=== PATIENT | male | born 1960 | race Caucasian/White ===

== ENCOUNTER 2019-12-26 20:09 | Emergency (ER) | payer OTHER, SELFPAY ==
[2019-12-26 20:39] VITALS: BP 150/70; PULSE 61; RESP 16; TEMP 36.9; O2SAT 94; BMI 28.5
--- NOTE | 2019-12-26 21:25 | ED.EXTPRO ---
HPI - Extremity Problem General Chief complaint: Extremity Problem,Nontraumatic Stated complaint: swollen right hand, hurt at work Time Seen by Provider: 12/26/19 20:55 Source: patient Mode of arrival: Ambulatory Limitations: no limitations History of Present Illness HPI Narrative: 59-year-old male nonsmoker with noncontributory medical history presents with a chief complaint of a reaccumulation of his right olecranon bursitis and now some swelling noted in his right hand. He denies any pain in his hand nor redness, warmth or red streaks. He has no systemic findings such as fever, chills nor nausea or vomiting. He was seen and evaluated at an outside facility and had a bursitis drained about a week ago and states that it developed a large hematoma which then was resort been to his forearm and now seems to have settled in his hand. He denies any new injury. He states that he went back to work and it seems to have exacerbated his symptoms rapidly. MD Complaint: extremity swelling Onset (ago): hour(s) Pain Consistency: intermittent Location: right and upper extremity Quality: aching Radiation: none Relieving factors: nothing Exacerbating factors: range of motion and palpation Associated symptoms: denies other symptoms Related Data Home Medications Medication Instructions Recorded Confirmed . (No Home Medications) #0 08/11/10 Allergies Allergy/AdvReac Type Severity Reaction Status Date / Time No Known Drug Allergies Allergy Verified 12/26/19 20:44 Review of Systems Constitutional Constitutional: Denies chills, Denies fatigue, Denies fever(s), Denies frequent falls, Denies lethargy and Denies weakness Eyes Eyes: Denies change in vision, Denies eye discharge, Denies irritation and Denies loss of vision ENT Ears, Nose, Mouth, and Throat: Denies change in voice, Denies dizziness, Denies neck pain, Denies sore throat and Denies throat swelling Cardiovascular Cardiovascular: Denies chest pain, Denies irregular heart rhythm, Denies lightheadedness, Denies palpitations, Denies dyspnea, Denies dyspnea on exertion and Denies orthopnea Respiratory Respiratory: Denies cough, Denies dyspnea, Denies dyspnea on exertion and Denies wheezing Gastrointestinal Gastrointestinal: Denies abdominal pain, Denies change in bowel habits, Denies diarrhea, Denies nausea and Denies vomiting Genitourinary Genitourinary: Denies hematuria, Denies flank pain, Denies urinary incontinence and Denies urinary urgency Musculoskeletal Musculoskeletal: Denies back pain, Reports joint swelling, Denies muscle weakness, Denies neck pain, Denies numbness and Denies tingling Integumentary/Breasts Skin/Breast: Denies pruritus, Denies erythema, Denies rash and Denies wounds Neurologic Neurologic: Denies behavioral changes, Denies confusion, Denies dizziness, Denies frequent falls, Denies loss of vision, Denies numbness, Denies tingling and Denies weakness Psychiatric Psychiatric: Denies anxiety, Denies behavioral changes, Denies confusion, Denies depression, Denies homicidal ideation and Denies suicidal ideation Endocrine Endocrine: Denies fatigue, Denies flushing and Denies palpitations Hematologic/Lymphatic Hematologic/Lymphatic: Denies easy bruising Allergic/Immunologic Allergic/Immunologic: Denies urticaria, Denies throat swelling and Denies wheezing Patient History Social History Smoking Status: Never smoker Smoking Status: Never smoker alcohol intake frequency: 0-2 drinks per day Substance Use Type: does not use Exam Narrative Exam Narrative: GEN: AOx3 and in mild distress EYES: Pupils are equal, round, and reactive to light and accommodation. Extraoccular muscles are intact bilaterally. There is no subconjunctival hemorrhage or exudate. CHEST: Lungs are clear to auscultation bilaterally and free of wheezes, rales, or rhonchi. Heart rate is regular rhythm, there are no murmurs, clicks, rubs, or gallops. There is no chest wall tenderness. ABD: Abdomen is soft and nontender. There is no guarding or rebound. Bowel sounds are normal in all 4 quadrants. There is no mass or organomegaly. EXT: Full but slightly painful range of motion right elbow, he states the pain is all in his slightly edematous bursa. There is no fluctuance, erythema or warmth. Additionally, there is some edema of his right hand but no warmth or redness. SKIN: Warm, pink, and dry. No erythema or rash Initial Vital Signs Initial Vital Signs: Vital Signs Temperature 98.5 F 12/26/19 20:39 Pulse Rate 61 12/26/19 20:39 Respiratory Rate 16 12/26/19 20:39 Blood Pressure 150/70 H 12/26/19 20:39 Pulse Oximetry 94 12/26/19 20:39 Course Orders Ordered: ED Orders 12/26/19 21:59 US periph venous up extrem rt Stat Vital Signs Vital signs: Vital Signs - 8 hr 12/26/19 23:10 Pulse Rate 66 Respiratory Rate 16 Blood Pressure 142/70 H Pulse Oximetry 97 MDM - Extremity (Nontraumatic) Imaging Data US - DVT: Radiologist's Impression: No DVT MDM Narrative Medical decision making narrative: Patient presents with recent procedure on right olecranon bursa and now swelling in his right hand. He states that he has no systemic findings, he is nontoxic. The edema in his hand is likely a gravity dependent scenario compounded by the frequent use of a wrap on his right elbow presenting venous return. Patient given return precautions and questions answered to his apparent satisfaction Discharge Plan Departure Patient Disposition: Home Clinical Impression: Bursitis, olecranon Qualifiers: Laterality: right Qualified Code(s): M70.21 - Olecranon bursitis, right elbow Discharge Date/Time: 12/26/19 23:11 Instructions: DI for Elbow Bursitis Activity Restrictions/Additional Instructions: *You have been diagnosed with [right olecranon bursitis with dependent edema of the hand] *What to do: *Follow up with your primary care provider in 2-3 days, call for an appointment. Let them know you were seen in the Emergency Department and that we ask that you be seen in follow up *Return to ER if you should have any new, worsening or concerning symptoms Prescriptions: No Action . (No Home Medications) Qty: 0 RF: 0 Stand Alone Forms: Work Release Note
--- NOTE | 2019-12-26 21:59 | DI.US.S_ITS ---
PROCEDURE: US PERIPH VENOUS UP EXTREM RT INDICATIONS: pain, swelling, recent procedure TECHNIQUE: Real-time imaging, as well as color and pulse Doppler interrogation, was performed of the right upper extremity deep veins from the inferior neck to the antecubital fossa. COMPARISON: None. FINDINGS: The internal jugular vein, visualized portions of the subclavian vein, axillary, and brachial veins are free of intraluminal thrombus. Where physically possible, the veins are normally compressible. Color and pulse Doppler demonstrate normal intraluminal flow, with expected phasicity and pulsatility. Additional scanning of the cephalic and basilic veins of the superficial system demonstrate normal compressibility, without thrombus. IMPRESSION: No evidence of deep vein thrombosis involving the right upper extremity. Dictated by: Sarita Iraheta MD, PhD on 12/27/2019 at 7:48 Approved by: Sarita Iraheta MD, PhD on 12/27/2019 at 7:48
[2019-12-26 23:10] VITALS: BP 142/70; PULSE 66; RESP 16; O2SAT 97
== END 2019-12-26 23:11 | disposition home or self-care (01) ==
PROVIDERS: Emergency Provider Emergency Medicine
DX: M70.21 Olecranon bursitis, right elbow (principal)
CPT/HCPCS: 93971; 99283

== ENCOUNTER → 2022-06-27 13:08 | Outpatient (ROUT) | payer OTHER, SELFPAY ==
[2022-06-27 15:00] LABS: COVID19 -Nasal RAPID Negative (Negative)
== END ==
PROVIDERS: Visit Provider Family Medicine
DX: Z20.822 Contact with and (suspected) exposure to COVID-19 (principal)
CPT/HCPCS: 87635; C9803